=== PATIENT | male | born 1985 | race Caucasian/White ===

== ENCOUNTER → 2019-05-30 | Outpatient (CLI) | payer OTHER ==
[2019-05-30 14:58] LABS: Basophils # (A) 0.1 k/uL (0-0.2); Basophils % (A) 1 %; Eosinophils # (A) 0.1 k/uL (0-0.7); Eosinophils % (A) 1 %; HGB 15.6 gm/dL (13.0-17.5); Lymphocytes # (A) 2.2 k/uL (1.0-4.8); Lymphocytes % (A) 25 %; MCH 30.8 pg (25.0-35.0); MCHC 34.7 g/dL (31.0-37.0); MCV 88.8 fL (80.0-100.0); Mean Platelet Volume 6.4; Monocytes # (A) 0.3 k/uL (0-1.0); Monocytes % (A) 4 %; Neutrophils % (A) 68 %; Platelet Count 367 k/uL (150-450); RBC 5.06 m/uL (4.30-5.90); RDW 12.2 % (11.5-15.5); WBC 8.8 k/uL (3.8-10.6)
[2019-05-30 20:19] LABS: T4, Free (Free Thyroxine) 1.4 ng/dL (0.80-1.80)
[2019-05-30 20:24] LABS: Albumin 5.2 g/dL (3.80-4.90); Albumin/Globulin Ratio 2.48 (1.60-3.17); Anion Gap 11.6 mmol/L (4.00-12.00); BUN/Creat Ratio 12.5 Ratio (12.00-20.00); Calcium 9.7 mg/dL (8.7-10.3); Carbon Dioxide 25.4 mmol/L (21.6-31.8); Chol/HDL Ratio 2.95; Globulin 2.1 g/dL (1.6-3.3); LDL Cholesterol,Calculated 90.8 mg/dL (0.0-131.0); Potassium 4.1 mmol/L (3.5-5.5); Total Bilirubin 0.6 mg/dL (0.3-1.2); Total Protein 7.3 g/dL (6.2-8.2); VLDL Calculation 24.2 mg/dL (5.00-40.00)
== END ==
LOC: LABWHC1 14:03
PROVIDERS: ATTEND Internal Medicine
DX: R53.83 Other fatigue (principal)
CPT/HCPCS: 36415; 80053; 80061; 84439; 84443; 84481; 85025; 86800

== ENCOUNTER 2020-04-18 01:38 | Observation (INO) | payer OTHER ==
[2020-04-18] MEDS ORDERED: SODIUM CHLORIDE 0.9% 1,000 ML IV STA ×2 (01:41→03:55)
--- NOTE | 2020-04-18 01:45 | ED ---
General Adult HPI - General Stated complaint: altered mental status Time Seen by Provider: 04/18/20 01:41 - History of Present Illness Initial comments: Iron is a 35-year-old male with extensive psychiatric history who presents to the ER today from [facility] via ambulance after he was seen to take multiple pills. Patient states he doesn't know what the pills he took R. Staff at [facility] is concerned it may have been benzos. Patient is also not acting like himself. - Related Data Home Medications Medication Instructions Recorded Confirmed Mupirocin Calcium 2% Cream 1 cream TOPICAL BID 02/10/15 02/10/15 [Bactroban 2% Cream] Sulfamethoxazole/Trimethoprim 1 each PO Q12H 02/10/15 02/10/15 [Bactrim DS 800-160 mg] Previous Rx's Medication Instructions Recorded Acamprosate Calcium [Campral] 666 mg PO TID #21 tablet. 02/15/15 Divalproex ER [Depakote ER] 1,000 mg PO HS 7 Days tab.er.24h 02/15/15 Ibuprofen [Motrin] 800 mg PO TID PRN #21 tab 02/15/15 Mupirocin 2% Oint [Bactroban 2% 1 applic TOPICAL BID applic 02/15/15 Oint] Gehblicb-Glhmiwulhm-Mryl Oint 1 applic TOPICAL BID #7 applic 02/15/15 [Triple Antibiotic Ointment] clonazePAM [KlonoPIN] 0.5 mg PO DAILY@0900,1600 #14 tab 02/15/15 clonazePAM [KlonoPIN] 2 mg PO DAILY@2100 #7 tab 02/15/15 fluPHENAZine [Prolixin] 5 mg PO DAILY@0900,1600 #14 tab 02/15/15 Allergies Allergy/AdvReac Type Severity Reaction Status Date / Time diphenhydramine HCl AdvReac Unknown Verified 02/10/15 15:35 [From Benadryl] haloperidol lactate AdvReac Unknown Verified 02/10/15 15:35 [From Haldol] ziprasidone HCl [From Geodon] AdvReac Unknown Verified 02/10/15 15:35 Review of Systems ROS Statement: Those systems with pertinent positive or pertinent negative responses have been documented in the HPI. ROS Other: All systems not noted in ROS Statement are negative. Past Medical History Past Medical History: Asthma, Musculoskeletal Disorder Additional Past Medical History / Comment(s): Chronic back pain History of Any Multi-Drug Resistant Organisms: MRSA Date of last positivie culture/infection: 01/28/2015 MDRO Source:: RIGHT ARM Past Surgical History: Appendectomy, Tonsillectomy Additional Past Surgical History / Comment(s): [place] teeth removed. Past Anesthesia/Blood Transfusion Reactions: No Reported Reaction Past Psychological History: Anxiety, Depression, Schizophrenia Additional Psychological History / Comment(s): Previous suicide attempts in the past include overdose on prescription drugs Geodon and Clonopin, strangling with his shirt, asphyxiation with a plastic bag over his head Past Alcohol Use History: Occasional Additional Past Alcohol Use History / Comment(s): Pt states he does not drink occaisionally. Past Drug Use History: Marijuana Additional Drug Use History / Comment(s): pt admits to using MJ and says it helps him with his manic behavior - Past Family History Father Family Medical History: Skin Disorder Additional Family Medical History / Comment(s): Psoriasis Mother Additional Family Medical History / Comment(s): unsure of medical problems, he feels she may have Depression General Exam - General Exam Comments Initial Comments: Physical Exam GENERAL: Patient is well-developed and well-nourished. Patient is nontoxic and well-hydrated and is in no distress. HENT: Normocephalic, Atraumatic. EYES: PERRL, EOMI Pupils 3 mm reactive PULMONARY: Unlabored respirations. CARDIOVASCULAR: RRR Warm and well perfused extremities ABDOMEN: Non-distended SKIN: No rashes or bruising Skin is cool and moist : Deferred NEUROLOGIC: Alert and oriented MUSCULOSKELETAL: Moving all extremities with no apparent injury PSYCHIATRIC: Altered Course Vital Signs 04/18/20 01:42 Temperature 98.7 F Pulse Rate 89 Respiratory 18 Rate Blood Pressure 120/76 O2 Sat by Pulse 98 Oximetry EKG Findings - EKG Comments: EKG Findings:: EKG was obtained due to contracture concern for toxic ingestion, EKG was obtained at 213, rate 75 rhythm is sinus there is a normal axis, there are normal intervals, WV 0.2, QRS 102, QTc 435 there are no acute ST elevations or depressions no evidence of acute ischemia or infarction. No evidence of malignant arrhythmia or any EKG findings consistent with toxic ingestion. Medical Decision Making - Medical Decision Making Patient was seen and evaluated upon arrival emergency department patient admits taking some pills was states they were pressed pills he doesn't know what they were he thought they were water pills, there is also mention of it possibly being BuSpar. Room air had concern that might of been Xanax or Ativan. Patient is awake and talking when stimulated however sleeps on is not stimulated, he wakes to loud voice or stimulation Labs and EKG were obtained with no acute abnormalities urine drug screens negative for all drugs Patient remains rather somnolent therefore will be admitted the hospital for altered mental status, plan for admission was discussed with admitting physician Dr. Craig who accepts admission - Lab Data Result diagrams: 04/18/20 01:59 04/18/20 01:59 Lab Results 04/18/20 04/18/20 04/18/20 Range/Units 01:59 01:59 01:59 WBC 8.5 (3.8-10.6) k/uL RBC 5.41 (4.30-5.90) m/uL Hgb 15.5 (13.0-17.5) gm/dL Hct 47.0 (39.0-53.0) % MCV 86.9 (80.0-100.0) fL MCH 28.7 (25.0-35.0) pg MCHC 33.0 (31.0-37.0) g/dL RDW 13.1 (11.5-15.5) % Plt Count 305 (150-450) k/uL Neutrophils % 60 % Lymphocytes % 31 % Monocytes % 5 % Eosinophils % 2 % Basophils % 1 % Neutrophils # 5.1 (1.3-7.7) k/uL Lymphocytes # 2.6 (1.0-4.8) k/uL Monocytes # 0.5 (0-1.0) k/uL Eosinophils # 0.1 (0-0.7) k/uL Basophils # 0.1 (0-0.2) k/uL Sodium 137 (137-145) mmol/L Potassium 4.3 (3.5-5.1) mmol/L Chloride 103 (98-107) mmol/L Carbon Dioxide 27 (22-30) mmol/L Anion Gap 7 mmol/L BUN 13 (9-20) mg/dL Creatinine 0.88 (0.66-1.25) mg/dL Est GFR (CKD-EPI)AfAm >90 (>60 ml/min/1.73 sqM) Est GFR (CKD-EPI)NonAf >90 (>60 ml/min/1.73 sqM) Glucose 83 (74-99) mg/dL Calcium 9.6 (8.4-10.2) mg/dL Total Bilirubin 0.5 (0.2-1.3) mg/dL AST 39 (17-59) U/L ALT 23 (4-49) U/L Alkaline Phosphatase 60 (38-126) U/L Total Protein 7.3 (6.3-8.2) g/dL Albumin 4.7 (3.5-5.0) g/dL Salicylates <1.0 mg/dL Urine Opiates Screen Not Detected (NotDetected) Ur Oxycodone Screen Not Detected (NotDetected) Urine Methadone Screen Not Detected (NotDetected) Ur Propoxyphene Screen Not Detected (NotDetected) Acetaminophen <10.0 ug/mL Ur Barbiturates Screen Not Detected (NotDetected) Valproic Acid <10.0 ug/mL U Tricyclic Antidepress Not Detected (NotDetected) Ur Phencyclidine Scrn Not Detected (NotDetected) Ur Amphetamines Screen Not Detected (NotDetected) U Methamphetamines Scrn Not Detected (NotDetected) U Benzodiazepines Scrn Not Detected (NotDetected) Urine Cocaine Screen Not Detected (NotDetected) U Marijuana (THC) Screen Not Detected (NotDetected) Serum Alcohol <10 mg/dL Disposition Clinical Impression: Drug overdose, Metabolic encephalopathy Disposition: ADMITTED IP TO THIS HOSP Condition: Stable Is patient prescribed a controlled substance at d/c from ED?: No Referrals: None,Stated [Primary Care Provider] - 1-2 days
[2020-04-18 02:07] LABS: Basophils # (A) 0.1 k/uL (0-0.2); Basophils % (A) 1 %; Eosinophils # (A) 0.1 k/uL (0-0.7); Eosinophils % (A) 2 %; HGB 15.5 gm/dL (13.0-17.5); Lymphocytes # (A) 2.6 k/uL (1.0-4.8); Lymphocytes % (A) 31 %; MCH 28.7 pg (25.0-35.0); MCV 86.9 fL (80.0-100.0); Mean Platelet Volume 6.4; Monocytes # (A) 0.5 k/uL (0-1.0); Monocytes % (A) 5 %; Neutrophils # (A) 5.1 k/uL (1.3-7.7); Neutrophils % (A) 60 %; Platelet Count 305 k/uL (150-450); RBC 5.41 m/uL (4.30-5.90); RDW 13.1 % (11.5-15.5); WBC 8.5 k/uL (3.8-10.6)
[2020-04-18 02:15] LABS: Amphetamine Screen,Urine Not Detected (NotDetected); Barbiturate Screen,Urine Not Detected (NotDetected); Benzodiazepines Screen,Urine Not Detected (NotDetected); Cocaine Screen,Urine Not Detected (NotDetected); Methadone Screen, Urine Not Detected (NotDetected); Opiate Screen,Urine Not Detected (NotDetected); Oxycodone Screen, Urine Not Detected (NotDetected); Phencyclidine Screen,Urine Not Detected (NotDetected); Tricyclic Antidepressant,Urine Not Detected (NotDetected); Urn Cannabinoid Scrn Not Detected (NotDetected)
[2020-04-18 02:16] LABS: Acetaminophen <10.0 ug/mL; African American GFR (CKD) >90 (>60 ml/min/1.73 sqM); Albumin 4.7 g/dL (3.5-5.0); Alcohol <10 mg/dL; Anion Gap 7 mmol/L; Calcium 9.6 mg/dL (8.4-10.2); Carbon Dioxide 27 mmol/L (22-30); Chloride 103 mmol/L (98-107); Glucose 83 mg/dL (74-99); Non-African American GFR(CKD) >90 (>60 ml/min/1.73 sqM); Salicylate <1.0 mg/dL; Sodium 137 mmol/L (137-145); Total Bilirubin 0.5 mg/dL (0.2-1.3); Total Protein 7.3 g/dL (6.3-8.2)
[2020-04-18 02:20] LABS: ALT 23 U/L (4-49); AST 39 U/L (17-59); Alkaline Phosphatase 60 U/L (38-126); Blood Urea Nitrogen 13 mg/dL (9-20); Potassium 4.3 mmol/L (3.5-5.1)
[2020-04-18 02:21] LABS: Valproic Acid (Depakene) <10.0 ug/mL
--- NOTE | 2020-04-18 04:00 | P.HPIM ---
History of Present Illness H&P Date: 04/18/20 Chief Complaint: Drug overdose 35-year-old male with history of seizures and psychiatry disorders Patient unable to provide any meaningful history he is very sleepy. He was brought in from here on house by EMS due to suspicion of drug overdose. It was reported by his roommate that he took a bunch of pills suspected to be benzos. Urine drug screen was negative patient blood work is unremarkable EKG normal sinus rhythm. Patient responds to painful stimulation and encouragement he would open eyes and start asking where he is and then starts swearing at the staff. And then he goes back to sleep he is currently unable to provide any meaningful history patient was given activated charcoal in the ED Review of Systems ROS unobtainable: due to mental status Past Medical History Past Medical History: Asthma, Musculoskeletal Disorder Additional Past Medical History / Comment(s): Chronic back pain History of Any Multi-Drug Resistant Organisms: MRSA Date of last positivie culture/infection: 01/28/2015 MDRO Source:: RIGHT ARM Past Surgical History: Appendectomy, Tonsillectomy Additional Past Surgical History / Comment(s): [place] teeth removed. Past Anesthesia/Blood Transfusion Reactions: No Reported Reaction Past Psychological History: Anxiety, Depression, Schizophrenia Additional Psychological History / Comment(s): Previous suicide attempts in the past include overdose on prescription drugs Geodon and Clonopin, strangling with his shirt, asphyxiation with a plastic bag over his head Past Alcohol Use History: Occasional Additional Past Alcohol Use History / Comment(s): Pt states he does not drink occaisionally. Past Drug Use History: Marijuana Additional Drug Use History / Comment(s): pt admits to using MJ and says it helps him with his manic behavior - Past Family History Father Family Medical History: Skin Disorder Additional Family Medical History / Comment(s): Psoriasis Mother Additional Family Medical History / Comment(s): unsure of medical problems, he feels she may have Depression Medications and Allergies Home Medications Medication Instructions Recorded Confirmed Type Mupirocin Calcium 2% Cream 1 cream TOPICAL BID 02/10/15 02/10/15 History [Bactroban 2% Cream] Sulfamethoxazole/Trimethoprim 1 each PO Q12H 02/10/15 02/10/15 History [Bactrim DS 800-160 mg] Acamprosate Calcium [Campral] 666 mg PO TID #21 tablet. 02/15/15 Rx Divalproex ER [Depakote ER] 1,000 mg PO HS 7 Days tab.er.24h 02/15/15 Rx Ibuprofen [Motrin] 800 mg PO TID PRN #21 tab 02/15/15 Rx Mupirocin 2% Oint [Bactroban 2% 1 applic TOPICAL BID applic 02/15/15 Rx Oint] Xqgopwsa-Mmgabnphgq-Qbqx Oint 1 applic TOPICAL BID #7 applic 02/15/15 Rx [Triple Antibiotic Ointment] clonazePAM [KlonoPIN] 0.5 mg PO DAILY@0900,1600 #14 tab 02/15/15 Rx clonazePAM [KlonoPIN] 2 mg PO DAILY@2100 #7 tab 02/15/15 Rx fluPHENAZine [Prolixin] 5 mg PO DAILY@0900,1600 #14 tab 02/15/15 Rx Allergies Allergy/AdvReac Type Severity Reaction Status Date / Time diphenhydramine HCl AdvReac Unknown Verified 02/10/15 15:35 [From Benadryl] haloperidol lactate AdvReac Unknown Verified 02/10/15 15:35 [From Haldol] ziprasidone HCl [From Geodon] AdvReac Unknown Verified 02/10/15 15:35 Physical Exam Vitals: Vital Signs Temp Pulse Resp BP Pulse Ox 04/18/20 03:01 74 18 108/63 97 04/18/20 01:42 98.7 F 89 18 120/76 98 Intake and Output 04/17/20 04/17/20 04/18/20 14:59 22:59 06:59 Other: Weight 90.718 kg Constitutional: Patient is sleeping heavily response to painful sternal relation Eyes: Anicteric sclerae, moist conjunctiva, Pupils equal round reactive to light ENMT: NC/AT Oropharynx clear, no erythema, or exudates Neck: Supple, FROM, no masses, or JVD No carotid bruits No thyromegaly Lungs: Clear to auscultation Clear to percussion Normal respiratory effort, no accessory muscle use Cardiovascular: Heart regular in rate and rhythm, No murmurs, gallops, or rubs No peripheral edema Abdominal: Soft Nontender, no guarding, rebound or rigidity Abdomen moving with respiration Normoactive bowel sounds No hepatomegaly, No splenomegaly No palpable mass No abdominal wall hernia noted Skin: Normal temperature, tone, texture, turgor No induration No subcutaneous nodules No rash, lesions No ulcers Extremities: No digital cyanosis No clubbing Pedal pulses intact and symmetrical Radial pulses intact and symmetrical No calf tenderness Psychiatric: Patient is heavily sedated Neuro unable to perform neuro exam however with pain stimulation and encouragement he opened his eyes and started moving his upper extremities purposefully and started questioning where he was and then became abusive to the staff and went back to sleep Lymphatics: no palpable cervical or supraclavicular , or inguinal lymph nodes Results CBC & Chem 7: 04/18/20 01:59 04/18/20 01:59 Assessment and Plan Assessment: History of mental health disorders History of seizures Patient currently with drug overdose Acute metabolic encephalopathy secondary to above Supportive care IV fluid hydration Patient given activated charcoal Drug screen negative Follow-up labs currently unremarkable EKG normal sinus rhythm Fall precautions Seizure precautions Neuro assessments every hour Psych consultation CODE STATUS: Full code DVT prophylaxis: Mechanical Discussed with: Patient, ER, RN Anticipated length of stay les than [address]: pending clinical course A total of 75 minutes was spent on the care of this complex patient more than 50% of the time was spent in counseling and care coordination.
[2020-04-18 04:54] VITALS: RESP 16
[2020-04-18 08:37] VITALS: BP 113/55; PULSE 85; TEMP 98.4
--- NOTE | 2020-04-18 09:54 | P.PN ---
Progress Note - Text Progress Note Date: 04/18/20 Medically stable for discharge pending psych eval. EPS nurse contacted.
--- NOTE | 2020-04-18 10:57 | P.DS ---
Providers Date of admission: 04/18/20 04:15 Expected date of discharge: 04/18/20 Attending physician: Kelsy Canales MD Consults: 04/18/20 03:55 Consult Physician Routine Consulting Provider: Africa Fernando Consult Reason/Comments: drug overdose Do you want consulting provider notified?: Yes, Notify in am Primary care physician: Stated None Hospital Course: Discharge Diagnosis: Acute encephalopathy due to medication side effect Depression without suicidal ideation Hx of seizure disorder Hospital Course: Patient is a 35-year-old male with schizophrenia and depression, asthma, and prior seizures who was brought in by EMS from [facility] with concerns of drug overdose. In the ER he was responsive to painful stimuli and would open eyes and answer questions but then falls back asleep and was swearing at staff. He was given activated charcoal in the ER. Laboratory analysis was unremarkable, UDS negative. He was admitted for further monitoring. By the morning of 04/18 he was awake alert and oriented 3. He states that he did restart his Strattera and addition to his other psychiatric medications, and had missed this medication for several weeks. He denied any suicidal thoughts or behaviors. He has an appointment with Dr. Pandya his psychiatrist on 04/20/2020. He is medically cleared for discharge. Has seen by psychiatry and cleared for discharge. [facility] mobile crisis team will see the patient at [facility]. Patient seen and examined at bedside. Denies chest pain, SOB, nausea, vomiting, diarrhea, headache. Denies suicidal ideation or drug overdose- both intentional and unintentional. He does state that he restarted his strattera yesterday at night. Vital signs reviewed and stable. General: non toxic, no distress, appears at stated age, disheveled Derm: warm, dry Head: atraumatic, normocephalic, symmetric Eyes: EOMI, no lid lag, anicteric sclera Mouth: no lip lesion, mucus membranes moist Cardiovascular: S1S2 reg, no murmur, positive posterior tibial pulse bilateral, Lungs: CTA bilateral, no rhonchi, no rales , no accessory muscle use Abdominal: soft, nontender to palpation, no guarding, no appreciable organomegaly Ext: no gross muscle atrophy, no edema, no contractures Neuro: CN II-XI grossly intact, no focal neuro deficits Psych: Alert, oriented, initally anxious but then calms down A total of 25 minutes of time were spent preparing this complex discharge summary . Patient Condition at Discharge: Stable Plan - Discharge Summary Discharge Rx Participant: No New Discharge Prescriptions: Continue OLANZapine 15 mg PO HS Naltrexone HCl [Revia] 50 mg PO DAILY Loratadine 10 mg PO DAILY Fluticasone Nasal [place] [Flonase Nasal [place]] 2 spr EA NOSTRIL DAILY FLUoxetine HCL [PROzac] 40 mg PO DAILY Atomoxetine HCl [Strattera] 60 mg PO DAILY Discharge Medication List Atomoxetine HCl [Strattera] 60 mg PO DAILY 04/18/20 [History] FLUoxetine HCL [PROzac] 40 mg PO DAILY 04/18/20 [History] Fluticasone Nasal [place] [Flonase Nasal [place]] 2 spr EA NOSTRIL DAILY 04/18/20 [History] Loratadine 10 mg PO DAILY 04/18/20 [History] Naltrexone HCl [Revia] 50 mg PO DAILY 04/18/20 [History] OLANZapine 15 mg PO HS 04/18/20 [History] Follow up Appointment(s)/Referral(s): None,Stated [Primary Care Provider] - 1-2 days Activity/Diet/Wound Care/Special Instructions: Pt is to follow up with Dr. Pandya at [facility] 04-20-20 at 12:00pm, Also called Mobile Crisis Unit and they state they will check in with him tomorrow at the [facility], and they are getting his case technician involved. Discharge Disposition: HOME SELF-CARE
--- NOTE | 2020-04-18 12:35 | CONS ---
CONSULTATION REASON FOR CONSULTATION: To rule out overdose. The patient is 35 years old, currently staying at [facility] for the last 2 weeks and it is court order for mental health for at least 2 years. The patient presented to the ER with altered mental status and his roommate in [facility] suspected that the patient took overdose of Klonopin. Today, when I saw the patient. He was alert. He was walking back and forth. He denied that he did have any suicidal attempt and he stated that the last suicidal attempt was 3 years ago when he overdosed on his prescription medication. Today he stated that he is not depressed. He is just feeling frustrated as he is in the hospital and he wants to be discharged. He complained of high anxiety and he was asking me if I gave him something stronger than the Klonopin for his anxiety. He denied any manic feature. He denied any psychotic feature. He stated that he does not feel the Zyprexa is working for his bipolar. The patient has been seen at [facility]. However, he did miss his last appointment with Dr. Garcia as he was in custodial. According to the patient that his last medication was Strattera in the morning and Zyprexa 30 mg at bedtime; however, he stated that Strattera did not help him for his attention deficit and he was asking me if I can give him Adderall for his ADD and Xanax for his anxiety. CURRENT LEGAL PROBLEM: Patient was arrested in February of 2020 for the charge of domestic violence towards his grandfather, he was in custodial for 3 weeks, then the appellate court judge order him to go to [facility] and he has a court order for mental health and substance abuse treatment He is on probation for 2 years MEDICAL HISTORY: There is history of seizures. ALLERGY: To BENADRYL, HALDOL and GEODON. PAST PSYCHIATRIC HISTORY: The patient has multiple admissions to the mental health unit. His last admission was 3 years ago. He did try Risperdal Consta, Wellbutrin, Klonopin, and currently he was on Zyprexa 30 mg at bedtime. CHEMICAL DEPENDENCY HISTORY: Alcohol use, he stated that the last time he did drink it was 6 or 7 months ago. Marijuana: He stated that he used to smoke marijuana, but since he was arrested, he is he is not smoking any illicit drug use. History of using methamphetamine and cocaine. According to him, "a long time ago." FAMILY HISTORY PSYCHIATRIC ILLNESS: Unknown. SOCIAL HISTORY: The patient is single, male who is currently staying at [facility] for the last 2 weeks. He is not . He does not have any children. He is on social security disability income. He stated that he is trying to find a part-time job. He denied being in special education while he was in school. MENTAL STATUS EXAMINATION: The patient is a male who appears his stated age. Fair grooming and hygiene. He is dressed in hospital gown. He is able to ambulate during the interview. He denied any suicidal or homicidal ideation. He denied that he did overdose. He stated "I just took the Zyprexa, but it might be too much." He denied feeling hopeless or helpless. He endorsed feeling frustrated as he is in the hospital. He has fair eye contact. There is no agitation behavior at this time. He denied any manic or hypomanic features. He denied any psychotic symptoms. He stated that he is very anxious and need some benzodiazepine for his anxiety, his insight and judgment regarding his addiction is questionable. ASSESSMENT: 1. Schizoaffective disorder, bipolar type. 2. History of alcohol use, cannabis use and methamphetamine use. PLAN: The patient is medically cleared to be discharged back to [facility] and he has an appointment at [facility] on Monday, April 20, 2020. In addition, I did contact the Mobile Crisis to check on him tomorrow. Psychiatrist will sign off. Thank you for this consult. GREGORY / MARSHALN: [id number] / CELESTE
== END 2020-04-18 12:17 | disposition home or self-care (01) ==
LOC: EC 01:38 → 3SCARD 04:15
PROVIDERS: ADMIT Internal Medicine; ATTEND Internal Medicine
DX: G92 Toxic encephalopathy (principal); R41.82 Altered mental status, unspecified; T50.905A Adverse effect of unspecified drugs, medicaments and biological substances, initial encounter; F31.9 Bipolar disorder, unspecified; F25.0 Schizoaffective disorder, bipolar type; G40.909 Epilepsy, unspecified, not intractable, without status epilepticus; J45.909 Unspecified asthma, uncomplicated; G89.29 Other chronic pain; M54.9 Dorsalgia, unspecified; F41.9 Anxiety disorder, unspecified; F98.8 Other specified behavioral and emotional disorders with onset usually occurring in childhood and adolescence; Z79.899 Other long term (current) drug therapy; Z79.1 Long term (current) use of non-steroidal anti-inflammatories (NSAID); Z88.8 Allergy status to other drugs, medicaments and biological substances; Z87.39 Personal history of other diseases of the musculoskeletal system and connective tissue; Z86.14 Personal history of Methicillin resistant Staphylococcus aureus infection; Z90.49 Acquired absence of other specified parts of digestive tract; Z90.89 Acquired absence of other organs; Z98.890 Other specified postprocedural states; Z91.5 Personal history of self-harm; Z91.14 Patient's other noncompliance with medication regimen; Z84.0 Family history of diseases of the skin and subcutaneous tissue; Y92.199 Unspecified place in other specified residential institution as the place of occurrence of the external cause
CPT/HCPCS: 82075; 96360; 96361; 99285; 36415; 93005; 80164; 80053; 85025; 80306; 83520; G0378; G0480 ×2; 80320; 80329

== ENCOUNTER → 2024-08-10 | Outpatient (CLI) | payer MEDICARE ==
--- NOTE | 2024-08-10 14:39 | CT ---
EXAMINATION TYPE: CT chest w con CT DLP: 254 mGycm, Automated exposure control for dose reduction was used. DATE OF EXAM: 08/10/2024 1:43 PM COMPARISON: Chest radiograph 01/02/2014, CT chest abdomen pelvis 12/28/2013 CLINICAL INDICATION:Male, 39 years old with history of R91.1 LUNG NODULE; PHH, lung nodule f/u TECHNIQUE: Multiple axial images were obtained through the chest following the administration of 100 cc of Isovue 300. . Coronal and sagittal reformats reviewed. FINDINGS: LUNGS/ PLEURA: No pleural effusion, pneumothorax, focal consolidation. Linear scarring and/or atelec tasis within the right lower lobe. Peripheral left lower lobe 2.8 cm pulmonary nodule with central co arse calcification previously measured 0.8 cm in 2014. There is some questionable surrounding tiny fa t density. AIRWAY: Patent and unremarkable.. HEART: Size within normal limits.No pericardial effusion. MEDIASTINUM: No evidence of adenopathy. VASCULATURE: No aortic aneurysm. MUSCULOSKELETAL: No acute osseous abnormalities SOFT TISSUES/LYMPH NODES: Mild bilateral gynecomastia. LOWER NECK: No significant findings. UPPER ABDOMEN: Calcified granulomas within the spleen. IMPRESSION: Increased size of left lower lobe pulmonary nodule with central coarse calcification from prior CT in 2014. Morphology suggests a benign hamartoma. Consider follow-up CT chest in one year. [facility], , 08/10/2024 2:37 PM
== END | disposition home or self-care (01) ==
LOC: RADCTMAIN 13:14
PROVIDERS: ATTEND Family Medicine
DX: R91.1 Solitary pulmonary nodule (principal); N62 Hypertrophy of breast
CPT/HCPCS: 71260; Q9967

== ENCOUNTER → 2025-02-15 | Outpatient (CLI) | payer MEDICARE, OTHER ==
[2025-02-15 15:09] LABS: HCT 36.7 % (39.6-50.0); HGB 12.5 g/dL (13.0-17.0); MCH 28.7 pg (27.0-32.0); MCHC 34.1 g/dL (32.0-37.0); MCV 84.4 FL (80.0-97.0); NRBC Per 100 WBC 0 X 10*3/uL (0.00-0.01); Platelet Count 300 X 10*3/uL (140-440); RBC 4.35 X 10*6/uL (4.40-5.60); RDW 12.7 % (11.5-14.5); WBC 8.63 X 10*3/uL (4.50-10.00)
[2025-02-15 16:45] LABS: ALT 15 U/L (10-49); AST 19 U/L (14-35); Albumin 4.1 g/dL (3.8-4.9); Albumin/Globulin Ratio 1.95 Ratio (1.60-3.17); Alkaline Phosphatase 58 U/L (41-126); BUN/Creat Ratio 14.78 Ratio (12.00-20.00); Blood Urea Nitrogen 13.3 mg/dL (9.0-27.0); Calcium 8.9 mg/dL (8.7-10.3); Carbon Dioxide 23.8 mmol/L (21.6-31.8); Chloride 102 mmol/L (96-109); Globulin 2.1 g/dL (1.6-3.3); Glucose 88 mg/dL (70-110); LDL Cholesterol,Calculated 73.9 mg/dL (0.0-131.0); Potassium 4.3 mmol/L (3.5-5.5); Sodium 135 mmol/L (135-145); Total Bilirubin 0.6 mg/dL (0.3-1.2); Total Protein 6.2 g/dL (6.2-8.2)
== END | disposition home or self-care (01) ==
LOC: LABWHC1 11:54
PROVIDERS: ATTEND Physician Assistant
DX: Z00.00 Encounter for general adult medical examination without abnormal findings (principal)
CPT/HCPCS: 36415; 80053; 80061; 83036; 84443; 85027